=== PATIENT | male | born 1965 | race Caucasian/White ===

== ENCOUNTER 2017-03-10 11:58 | Observation (INO) ==
[2017-03-10] MEDS ORDERED: Aspirin 81 MG TAB.CHEW PO ONE (12:10)
[2017-03-10] MEDS ORDERED: Ipratropium/Albuterol Neb 3 ML IH ONE (12:11)
--- NOTE | 2017-03-10 12:13 | Emergency Department Note ---
Disposition Clinical Impression: Chest pain Qualifiers: Chest pain type: chest pain on breathing Qualified Code(s): R07.1 - Chest pain on breathing Disposition: Home, Self-Care Chest Pain HPI - General Chief Complaint: ED Chest Pain Stated Complaint: Chest pain Time Seen by Provider: 03/10/17 12:10 Source: patient Mode of arrival: ambulatory Limitations: no limitations Vital Signs Reviewed: Yes Nursing Notes Reviewed: Yes - History of Present Illness HPI Narrative: Patient states yesterday he was moving a bag of mulch when he developed some chest pain states it was midsternal states it started to ease up after he M quit working recently got up and started on something for chest pain came back sitting a little bit sweaty when the event occurred he said it was still continuing this morning which is why she came in today about noon as result. He states he still having a little bit of substernal chest discomfort but no nausea vomiting or diaphoresis midgets this time nothing makes it better rest does seem to make it ease up a little bit but movement really does seem to make it worse when he is bending over Pt complaint: chest pain Onset (ago): day(s) (1) Duration: intermittent Onset: during exertion Pain Location: substernal Severity: moderate Severity scale (1-10): 5 Quality: aching Improves with: rest Worsens with: exertion Associated symptoms: Reports: diaphoresis, dyspnea. Denies: nausea, vomiting, sense of impending doom, syncope, palpitations, fever, cough, leg swelling Treatments prior to arrival chest pain: none - Related Data Home Medications Medication Instructions Recorded Confirmed HYDROcodone/Acet 7.5/325 mg [[place] 1 tab PO AD PRN 03/10/17 03/10/17 7.5-325 mg] Ibuprofen [Motrin] 800 mg PO DAILY 03/10/17 03/10/17 Allergies Allergy/AdvReac Type Severity Reaction Status Date / Time No Known Allergies Allergy Verified 03/10/17 12:01 All systems ED: reviewed and negative except as stated. Constitutional: Denies: fever, chills Eyes: Denies: eye pain ENT ED: Denies: ear pain Cardiovascular: Reports: chest pain, dyspnea on exertion. Denies: palpitations , syncope Respiratory: Denies: cough, dyspnea Gastrointestinal: Denies: abdominal pain Genitourinary: Denies: urgency, dysuria Musculoskeletal: Denies: back pain Integumentary: Denies: rash, abrasion Neurological: Denies: headache Psychiatric: Denies: anxiety Endocrine: Denies: fatigue Hematological/Lymphatic: Denies: easy bleeding Allergic/Immunologic: Denies: facial swelling Chest Pain PMH - Past Medical History Medical history: Reports: other Psychiatric history: Reports: no psych history - Social History Smoking Status: Former smoker Alcohol use: Reports: none Drug use: Reports: none Father Brother Hx Family Cardiac Disorders: Yes (both in mid 40's due to ID) Physical Exam - General Limitations: no limitations General appearance: alert, in no apparent distress - Head Head exam: atraumatic, normocephalic, normal inspection - Eye Eye exam: Present: normal appearance, PERRL, EOMI - ENT ENT exam: normal exam, normal oropharynx, mucous membranes moist, normal external ear exam - Neck Neck exam: Present: normal inspection, full ROM, trachea midline. Absent: tenderness - Chest Chest inspection: Present: normal inspection, symmetric chest wall rise. Absent : tenderness - Respiratory Respiratory exam: Present: normal lung sounds bilaterally, wheezes. Absent: accessory muscle use, prolonged expiratory phase - Cardiovascular Cardiovascular exam: Present: regular rate, normal rhythm, normal heart sounds - Abdominal Exam Abdominal exam: Present: soft, Non-Tender, normal bowel sounds. Absent: mass, pulsatile mass - Extremities Exam Extremities exam: Present: normal inspection, full ROM, normal capillary refill. Absent: tenderness, joint swelling - Expanded Lower Extremity Exam Neurovascular/Tendon exam: Present: normal capillary refill, normal fine/light touch Gait: observed and normal - Back Exam Back exam: Present: normal inspection, full ROM. Absent: muscle spasm - Neurological Exam Neurological exam: Present: alert, oriented X3, CN II-XII intact, normal gait - Psychiatric Psychiatric exam: Present: normal affect, normal mood - Skin Skin exam: Present: warm, dry, intact, normal color Course Course Narrative: Patient seen and examined given aspirin laboratory and x-ray obtained EKGs been obtained and reviewed no acute changes Vital Signs Temperature 98.7 F 03/10/17 11:59 Pulse Rate 73 03/10/17 11:59 Respiratory Rate 16 03/10/17 11:59 Blood Pressure 135/79 03/10/17 11:59 O2 Sat by Pulse Oximetry 98 03/10/17 11:59 Temperature 98.6 F 06/01/17 06:25 Pulse Rate 74 03/11/17 06:25 Respiratory Rate 16 03/11/17 06:25 Blood Pressure 135/85 03/11/17 06:25 O2 Sat by Pulse Oximetry 96 03/11/17 06:25 Oxygen Delivery Oxygen Delivery Room Air Chest Pain - MDM Narrative Medical decision making narrative: black lung/copd - Differential Diagnosis Likely: pneumothorax, atypical chest pain, st elevation myocardial infraction, costalchondritis - Medical Records Medical records reviewed: Yes I reviewed the patient's medical records. - Lab Data Lab results reviewed: Yes I reviewed the patient's lab results. Result diagrams: 03/11/17 06:06 03/11/17 06:06 Lab Results 03/10/17 03/10/17 03/10/17 Range/Units 12:15 12:15 12:15 WBC 4.6 (4.3-11.1) K/mcL RBC 4.81 (4.19-5.50) M/mcL Hgb 14.3 (12.9-16.9) g/dL Hct 41.3 (37.5-50.1) % MCV 85.9 (83.0-100.0) fL MCH 29.7 (28.0-33.3) pg MCHC 34.6 (31.6-35.5) g/dL RDW 12.9 (11.5-14.5) % Plt Count 172 (140-400) K/mcL MPV 11.5 (9.4-12.4) fL Immature Gran % 0.2 (0-4) % Seg Neutrophils % 34.2 % Lymphocytes % 51.3 % Monocytes % 10.8 % Eosinophils % 2.4 % Basophils % 1.1 % Neutrophils # 1.6 (1.6-8.9) K/mcL Lymphocytes # 2.4 (0.6-4.6) K/mcL Monocytes # 0.5 (0.0-1.3) K/mcL Eosinophils # 0.1 (0.0-0.6) K/mcL Basophils # 0.1 (0.0-0.2) K/mcL PT 11.5 (9.4-12.1) Seconds INR 1.1 Sodium 140 (136-145) mEq/L Potassium 4.0 (3.5-4.5) mEq/L Chloride 108 (98-109) mEq/L Carbon Dioxide 21 (19-29) mEq/L BUN 20 (8-26) mg/dL Creatinine 1.04 (0.72-1.25) mg/dL Est GFR ( Amer) > 60 (> 60) Est GFR (Non-Af Amer) > 60 (> 60) BUN/Creatinine Ratio 19 (6-26) Glucose 106 H (70-99) mg/dL Calculated Osmolality 293 (280-300) Calcium 9.6 (8.6-10.8) mg/dL Troponin I (0-0.03) ng/mL 03/10/17 Range/Units 12:15 WBC (4.3-11.1) K/mcL RBC (4.19-5.50) M/mcL Hgb (12.9-16.9) g/dL Hct (37.5-50.1) % MCV (83.0-100.0) fL MCH (28.0-33.3) pg MCHC (31.6-35.5) g/dL RDW (11.5-14.5) % Plt Count (140-400) K/mcL MPV (9.4-12.4) fL Immature Gran % (0-4) % Seg Neutrophils % % Lymphocytes % % Monocytes % % Eosinophils % % Basophils % % Neutrophils # (1.6-8.9) K/mcL Lymphocytes # (0.6-4.6) K/mcL Monocytes # (0.0-1.3) K/mcL Eosinophils # (0.0-0.6) K/mcL Basophils # (0.0-0.2) K/mcL PT (9.4-12.1) Seconds INR Sodium (136-145) mEq/L Potassium (3.5-4.5) mEq/L Chloride (98-109) mEq/L Carbon Dioxide (19-29) mEq/L BUN (8-26) mg/dL Creatinine (0.72-1.25) mg/dL Est GFR ( Amer) (> 60) Est GFR (Non-Af Amer) (> 60) BUN/Creatinine Ratio (6-26) Glucose (70-99) mg/dL Calculated Osmolality (280-300) Calcium (8.6-10.8) mg/dL Troponin I 0.00 (0-0.03) ng/mL - Radiology Data Radiology results reviewed: Yes I reviewed the patient's radiology results. - EKG Data EKG attestation: Yes I reviewed and interpreted this EKG. EKG results narrative: Sinus rhythm incomplete right bundle-branch rate 66 [place]-2O2 QRS 98 QT 364 axis DAYANA Heart Score - Score History: Slightly Suspicious EKG: Normal Age: 45-65 Risk Factors: 1-2 risk factors Troponin: Less than normal limit HEART Score Total: 2
[2017-03-10 12:27] LABS: Basophils # 0.1 K/mcL (0.0-0.2); Basophils % 1.1 %; Eosinophils # 0.1 K/mcL (0.0-0.6); Eosinophils % 2.4 %; Hematocrit 41.3 % (37.5-50.1); Hemoglobin 14.3 g/dL (12.9-16.9); Immature Granulocytes % 0.2 % (0-4); Lymphocytes # 2.4 K/mcL (0.6-4.6); Lymphocytes % 51.3 %; Mean Corpuscular HGB Conc 34.6 g/dL (31.6-35.5); Mean Corpuscular Hemoglobin 29.7 pg (28.0-33.3); Mean Corpuscular Volume 85.9 fL (83.0-100.0); Mean Platelet Volume 11.5 fL (9.4-12.4); Monocytes # 0.5 K/mcL (0.0-1.3); Monocytes % 10.8 %; Neutrophils # 1.6 K/mcL (1.6-8.9); Platelet Count 172 K/mcL (140-400); Red Blood Count 4.81 M/mcL (4.19-5.50); Red Cell Distribution Width 12.9 % (11.5-14.5); Segmented Neutrophils % 34.2 %
[2017-03-10 12:33] LABS: INR 1.1; Prothrombin Time 11.5 Seconds (9.4-12.1)
[2017-03-10 12:43] LABS: BUN/Creatinine Ratio 19 (6-26); Blood Urea Nitrogen 20 mg/dL (8-26); Calcium 9.6 mg/dL (8.6-10.8); Carbon Dioxide 21 mEq/L (19-29); Chloride 108 mEq/L (98-109); Glucose 106 mg/dL (70-99); Osmolality,Calculated 293 (280-300); Sodium 140 mEq/L (136-145); eGFR For African Americans > 60 (> 60); eGFR For Non-African Americans > 60 (> 60)
[2017-03-10] MEDS ORDERED: Naloxone 0.4 MG/ML INJ IVP PRN (13:05)
--- NOTE | 2017-03-10 15:57 | Electrocardiograph Report ---
[address] [address] Test Date: 2017-03-10 Pat Name: Bin Gramajo Department: [id number] Room: [facility] Gender: M Director Of Annual Giving: [id number] : 1965 Requested By: Shona Morgan Order Number: [id number] Reading MD: Ricco Borges MD Measurements Intervals [place] Rate: 66 P: 48 IL: 202 QRS: 54 QRSD: 98 T: 44 QT: 364 QTc: 377 Interpretive Statements SINUS RHYTHM INCOMPLETE RIGHT BUNDLE BRANCH BLOCK Electronically Signed On 03-10-2017 15:55:16 EDT by Ricco Borges MD
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
[2017-03-10] MEDS ORDERED: *HR* HYDROcodone/Acet 7.5/325 mg TABLET PO PRN (21:13)
[2017-03-11 06:25] LABS: Basophils # 0.1 K/mcL (0.0-0.2); Basophils % 1.2 %; Eosinophils # 0.2 K/mcL (0.0-0.6); Eosinophils % 3.3 %; Hematocrit 44.2 % (37.5-50.1); Hemoglobin 15.2 g/dL (12.9-16.9); Immature Granulocytes % 0.4 % (0-4); Lymphocytes # 2.1 K/mcL (0.6-4.6); Lymphocytes % 42.1 %; Mean Corpuscular HGB Conc 34.4 g/dL (31.6-35.5); Mean Corpuscular Hemoglobin 29.6 pg (28.0-33.3); Monocytes # 0.5 K/mcL (0.0-1.3); Monocytes % 10.8 %; Neutrophils # 2.1 K/mcL (1.6-8.9); Platelet Count 170 K/mcL (140-400); Red Blood Count 5.14 M/mcL (4.19-5.50); Red Cell Distribution Width 12.9 % (11.5-14.5); Segmented Neutrophils % 42.2 %
[2017-03-11 06:27] VITALS: BP 135/85
[2017-03-11 06:48] LABS: BUN/Creatinine Ratio 15 (6-26); Blood Urea Nitrogen 16 mg/dL (8-26); Calcium 9.5 mg/dL (8.6-10.8); Carbon Dioxide 22 mEq/L (19-29); Chloride 109 mEq/L (98-109); Glucose 114 mg/dL (70-99); Osmolality,Calculated 296 (280-300); Potassium 4.2 mEq/L (3.5-4.5); Sodium 142 mEq/L (136-145); eGFR For African Americans > 60 (> 60); eGFR For Non-African Americans > 60 (> 60)
--- NOTE | 2017-03-11 09:29 | Discharge Summary ---
Date of Encounter: 03/11/17 Time of Encounter: 09:20 - Discharge Diagnosis (1) Chest pain Priority: Primary Status: Acute Qualifiers: Chest pain type: chest pain on breathing Qualified Code(s): R07.1 - Chest pain on breathing - Discharge Medications Home Medications: HYDROcodone/Acet 7.5/325 mg [[place] 7.5-325 mg] 1 tab PO AD PRN 03/10/17 [History ] Ibuprofen [Motrin] 800 mg PO DAILY 03/10/17 [History] Allergies/Adverse Reactions: Allergies No Known Allergies Allergy (Verified 03/10/17 12:01) Procedures/tests Complete & Pending: Procedures Performed prior 72 hours Category Date Time Status CT chest w/o contrast [CT chest wo con] [CT] Routine Cat Scan 03/10/17 19:05 Completed Date of admission: 03/10/17 13:16 Primary care physician: Vasyl Chandler DO - Patient Status Disposition: Home, Self-Care Functional capacity at discharge: independent ambulation - Discharge Instructions Follow Up With: Vasyl Chandler DO [Primary Care Provider] - 1 week - Diet and Activity Activity: resume usual activities as tolerated Diet: advance to your usual diet Hospital course: Mr. Gramajo is a 51 year old male who came to the hospital stating he had onset of left chest pain March 08 while doing leisure activity. It has persisted without interruption since then. It became more sharp and occasionally radiated down his left arm. He denies cough or dyspnea. He states the pain is worse on deep inspiration. When there was no improvement and seemed to be slightly worsening he decided to come to emergency room. He was evaluated and admitted to [facility] for ongoing care needs. Initial orders were written by the emergency room physician. I saw him on March 10 and performed the history and physical. Repeat cardiac enzymes showed no evidence of myocardial damage. When I saw him I did not think the pain was of myocardial ischemic origin. D-dimer returned within normal range. A noncontrast chest CT was done which showed many pulmonary nodules similar to a 03/13/[address] scan. 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 When I saw him on March 11 he felt slightly improved and stable for discharge home. I explained to him the etiology of the pain was not certain. He will follow with his PCP Dr. Chandler within 1 week. - Time Spent with Patient Total time spent providing and/or coordinating discharge services: - Constitutional Vitals: Temp Pulse Resp BP Pulse Ox 98.6 F 74 16 135/85 96 03/11/17 06:25 03/11/17 06:25 03/11/17 06:25 03/11/17 06:25 03/11/17 06:25 - VTE Reasons for not Prescribing Prophylaxis: Treatment not Indicated - Low risk for VTE
== END 2017-03-11 10:00 | disposition home or self-care (01) ==
LOC: EMEROOPIK 11:58 → INPPIK 11:58
PROVIDERS: ADMIT Internal Medicine; ATTEND Internal Medicine